=== PATIENT | male | born 1995 | race Two or more races ===

== ENCOUNTER 2023-11-23 20:16 | Inpatient (IN) | payer OTHER ==
[~2023-11-23] VITALS: Ht 188 cm; Wt 103.2 kg
[2023-11-23 20:38] LABS: Basophils # (auto) 0 10 ^3/uL (0-0.2); Basophils % (auto) 0.1 % (0.0-2.0); Eosinophils # (auto) 0.1 10 ^3/uL (0-0.8); Eosinophils % (auto) 0.3 % (0.0-7.0); Hematocrit 41.5 % (41.0-53.0); Hemoglobin 13.5 g/dL (13.5-17.5); Lymphocytes # (auto) 1.4 10 ^3/uL (0.4-5.4); Lymphocytes % (auto) 8.8 % (10.0-50.0); Mean Corpuscular Hemoglobin 28.6 pg (28.0-32.0); Mean Corpuscular Hgb Conc. 32.6 g/dL (32.0-36.0); Mean Corpuscular Volume 87.9 fL (80.0-100.0); Monocytes # (auto) 1.8 10 ^3/uL (0-1.3); Monocytes % (auto) 10.8 % (0.0-12.0); Neutrophils # (auto) 13.2 10 ^3/uL (1.6-8.6); Red Blood Cells 4.72 10^6/uL (4.5-5.90); Red Cell Distribution Width 12.9 % (11.8-14.3); White Blood Cell 16.5 10^3/uL (4.4-10.8)
[2023-11-23 20:52] LABS: INR 1.11 (0.9-1.15); Partial Thromboplastin Time 31.5 SEC (24.5-34.5); Prothrombin Time 11.7 sec (9.3-11.8)
[2023-11-23 20:54] LABS: Alanine Aminotransferase 17 U/L (7-40); Albumin 4.6 g/dL (3.2-4.8); Alkaline Phosphatase 57 U/L (46-116); Anion Gap 7 (5-15); Aspartate Aminotransferase 18 U/L (13-40); BUN/Creatinine Ratio 8.1 (10.0-20.0); Blood Urea Nitrogen 9 mg/dL (9-23); Calcium 9.7 mg/dL (8.5-10.1); Carbon Dioxide 26 mmol/L (20-30); Chloride 105 mmol/L (98-107); Glucose 120 mg/dL (74-106); Potassium 3.8 mmol/L (3.5-5.1); Sodium 138 mmol/L (136-145)
[2023-11-23 20:55] LABS: Bilirubin, Total 2.4 mg/dL (0.2-1.0); Total Protein 7.5 g/dL (5.7-8.2)
[2023-11-23] MEDS: ONDANSETRON ODT 4 MG TAB PO ONE (22:55)
[2023-11-23 23:05] LABS: Urine Bacteria None Seen /hpf (None Seen)
[2023-11-23] MEDS: SODIUM CHLORIDE 0.9% 1,000 ML IV ONE (23:08)
[2023-11-23] MEDS: MAALOX PLUS or MAALOX 30 ML PO ONE (23:09)
[2023-11-23 23:24] LABS: Urine Blood 1+ /uL (Negative); Urine Clarity Clear (Clear); Urine Color Yellow (Yellow); Urine Mucus FEW (None Seen); Urine Protein, UAD TRACE (Negative); Urine Urobilinogen Normal (Negative); Urine WBC 5 /hpf (0 - 3); Urine pH 5.5 (5.0-9.0)
[2023-11-23] MEDS: HYDROcodone-ACET 5/325MG TAB PO ONE (23:43)
[2023-11-23 23:45] VITALS: PULSE 104; RESP 19; O2SAT 96
[2023-11-23] MEDS: IOHEXOL 350 MG/ML 100ML IJ ONE (23:50)
[2023-11-24 00:11] LABS: Amphetamine Screen, Urine Neg (NEGATIVE); Barbiturate Scree,Urine Neg (NEGATIVE); Benzodiazephine Screen, Urine Neg (NEGATIVE); Cannabinoid Screen, Urine Neg (NEGATIVE); Cocaine Screen, Urine Neg (NEGATIVE); Opiate Scree,Urine Neg (NEGATIVE); Phencyclidine Screen, Urine Neg (NEGATIVE)
[2023-11-24 00:54] LABS: COVID19 ANTIGEN SOFIA FIA NEGATIVE (NEGATIVE)
[2023-11-24 00:55] LABS: Rapid Influenza A Negative (Negative); Rapid Influenza B Negative (Negative)
[2023-11-24] MEDS: MORPHINE SULFATE INJ 2 MG/ml SYRG IV ONE ×2 (02:00→02:13)
[2023-11-24] MEDS ORDERED: DOCUSATE SOD 100 MG CAP PO PRN (02:30)
[2023-11-24] MEDS ORDERED: ACETAMINOPHEN 325 MG TAB PO PRN (02:30)
[2023-11-24] MEDS ORDERED: HYDROcodone-ACET 5/325MG TAB PO PRN (02:30)
[2023-11-24] MEDS: SODIUM CHLORIDE 0.9% 1,000 ML IV SCH ×2 (03:04→13:15)
[2023-11-24] MEDS: MORPHINE SULFATE INJ 2 MG/ml SYRG IV PRN (03:11)
[2023-11-24] MEDS: ONDANSETRON HCL 4 MG/2 ML VIAL IV PRN (03:17)
[2023-11-24 04:18] LABS: Basophils # (auto) 0 10 ^3/uL (0-0.2); Basophils % (auto) 0.1 % (0.0-2.0); Eosinophils # (auto) 0 10 ^3/uL (0-0.8); Eosinophils % (auto) 0.3 % (0.0-7.0); Hematocrit 38.1 % (41.0-53.0); Hemoglobin 12.7 g/dL (13.5-17.5); Lymphocytes # (auto) 1.3 10 ^3/uL (0.4-5.4); Lymphocytes % (auto) 8.3 % (10.0-50.0); Mean Corpuscular Hemoglobin 29.6 pg (28.0-32.0); Mean Corpuscular Hgb Conc. 33.2 g/dL (32.0-36.0); Mean Corpuscular Volume 89.1 fL (80.0-100.0); Monocytes # (auto) 1.8 10 ^3/uL (0-1.3); Monocytes % (auto) 11.5 % (0.0-12.0); Neutrophils # (auto) 12.4 10 ^3/uL (1.6-8.6); Neutrophils % (auto) 79.8 % (37.0-80.0); Red Blood Cells 4.28 10^6/uL (4.5-5.90); Red Cell Distribution Width 13.1 % (11.8-14.3); White Blood Cell 15.5 10^3/uL (4.4-10.8)
[2023-11-24 04:38] LABS: Alanine Aminotransferase 20 U/L (7-40); Alkaline Phosphatase 61 U/L (46-116); Calcium 8.8 mg/dL (8.5-10.1); Carbon Dioxide 22 mmol/L (20-30); Chloride 106 mmol/L (98-107)
[2023-11-24 04:39] LABS: Anion Gap 8 (5-15); Aspartate Aminotransferase 27 U/L (13-40); BUN/Creatinine Ratio 9.9 (10.0-20.0); Bilirubin, Total 2.2 mg/dL (0.2-1.0); Blood Urea Nitrogen 9 mg/dL (9-23); Glucose 140 mg/dL (74-106); Potassium 4.4 mmol/L (3.5-5.1); Sodium 136 mmol/L (136-145); Total Protein 6.1 g/dL (5.7-8.2)
[2023-11-24] MEDS: NITROGLYCERIN 0.4 MG SL TAB SL PRN (04:48)
[2023-11-24] MEDS: KETOROLAC TROMETH 30 MG/ML 1ML VIAL IV ONE ×2 (05:25→08:12)
[2023-11-24] MEDS: SODIUM CHLORIDE 0.9% 500 ML IV ONE (08:00)
[2023-11-24] MEDS: cefTRIAXone 1GM/50ML D5W 50 ML IV SCH (09:37)
[2023-11-24 10:52] VITALS: PULSE 95; RESP 19; O2SAT 98
[2023-11-24] MEDS: ASPirin 81 mg TAB PO SCH (10:54)
[2023-11-24] MEDS: AZITHROMYCIN 500MG/ 250ML 250 ML IV SCH (10:54)
[2023-11-24 12:44] VITALS: BP 119/71; PULSE 95; RESP 19; TEMP 98.4; O2SAT 98
[2023-11-24 14:33] VITALS: BP 121/80; PULSE 85; RESP 20; TEMP 98.1; O2SAT 99
[2023-11-24 15:15] LABS: Erythrocyte Sedimentation Rate 67 mm/hr (0-20)
[2023-11-24 16:53] VITALS: BP 126/74; PULSE 74; RESP 18; TEMP 97.7; O2SAT 96
[2023-11-24] MEDS: KETOROLAC TROMETH 30 MG/ML 1ML VIAL IV PRN (16:54)
[2023-11-24 17:38] VITALS: BP 107/72; PULSE 107; RESP 19; TEMP 98.1; O2SAT 98
[2023-11-24 20:00] VITALS: BP_SYST 108; BP_SYST 109; BP_DIAS 62; PULSE 110; PULSE 98; RESP 16; RESP 17; RESP 18; TEMP 97.8; TEMP 98.2; O2SAT 94; O2SAT 97
[2023-11-24] MEDS: PANTOPRAZOLE 40 MG/10 ML VIAL INJ IV SCH (21:19)
[2023-11-25 01:00] VITALS: BP 106/71; PULSE 108; RESP 16; TEMP 98.2; O2SAT 96
[2023-11-25] MEDS: guaiFENesin-DM 100/10mg/5ml SYR PO ONE (04:21)
[2023-11-25 05:00] VITALS: BP_SYST 116; BP_SYST 95; BP_DIAS 64; BP_DIAS 75; PULSE 112; PULSE 81; RESP 16; RESP 17; TEMP 98; TEMP 98.4; O2SAT 94
[2023-11-25 06:59] LABS: Basophils # (auto) 0 10 ^3/uL (0-0.2); Basophils % (auto) 0.1 % (0.0-2.0); Eosinophils # (auto) 0.2 10 ^3/uL (0-0.8); Eosinophils % (auto) 1.4 % (0.0-7.0); Hematocrit 32.2 % (41.0-53.0); Lymphocytes # (auto) 1.5 10 ^3/uL (0.4-5.4); Lymphocytes % (auto) 12.9 % (10.0-50.0); Mean Corpuscular Hgb Conc. 34.2 g/dL (32.0-36.0); Mean Corpuscular Volume 87.8 fL (80.0-100.0); Monocytes # (auto) 1.4 10 ^3/uL (0-1.3); Monocytes % (auto) 12.2 % (0.0-12.0); Neutrophils # (auto) 8.4 10 ^3/uL (1.6-8.6); Neutrophils % (auto) 73.4 % (37.0-80.0); Red Blood Cells 3.67 10^6/uL (4.5-5.90); Red Cell Distribution Width 13.2 % (11.8-14.3); White Blood Cell 11.4 10^3/uL (4.4-10.8)
[2023-11-25 07:17] LABS: Alanine Aminotransferase 29 U/L (7-40); Albumin 3.5 g/dL (3.2-4.8); Alkaline Phosphatase 65 U/L (46-116); Anion Gap 8 (5-15); Aspartate Aminotransferase 26 U/L (13-40); BUN/Creatinine Ratio 8.2 (10.0-20.0); Blood Urea Nitrogen 8 mg/dL (9-23); Calcium 8.8 mg/dL (8.5-10.1); Carbon Dioxide 23 mmol/L (20-30); Chloride 103 mmol/L (98-107); Glucose 114 mg/dL (74-106); Sodium 134 mmol/L (136-145)
[2023-11-25 07:18] LABS: Bilirubin, Total 1.6 mg/dL (0.2-1.0)
[2023-11-25 08:00] VITALS: PULSE 108; RESP 18; O2SAT 98
[2023-11-25 09:00] VITALS: BP 108/63; PULSE 105; RESP 20; TEMP 98.4; O2SAT 94
[2023-11-25 09:45] LABS: CRP High Sensitivity 15.39 mg/dL (<1.0)
[2023-11-25] MEDS: IBUPROFEN 400 MG TAB PO ONE (12:08)
[2023-11-25] MEDS: COLCHICINE 0.6 MG CAP PO SCH (12:09)
[2023-11-25] MEDS: PANTOPRAZOLE 40 MG TAB PO SCH (12:09)
[2023-11-25 12:52] LABS: Magnesium 2.1 mg/dL (1.6-2.6)
[2023-11-25 13:00] VITALS: BP 117/84; PULSE 101; RESP 20; TEMP 98.7; O2SAT 97
[2023-11-25 13:29] LABS: Magnesium 2.1 mg/dL (1.6-2.6)
[2023-11-25] MEDS: IBUPROFEN 600 MG TAB PO SCH (14:34)
== END 2023-11-25 14:25 | disposition left against medical advice (07) | DRG 871 ==
LOC: ER 20:16 → TELE 11-24 02:35 → TELE-EAST 11-24 10:01
PROVIDERS: ADMIT Nurse Practitioner Family; ATTEND Family Medicine
DX: A41.9 Sepsis, unspecified organism (principal); J18.9 Pneumonia, unspecified organism; I30.9 Acute pericarditis, unspecified; E66.9 Obesity, unspecified; Z53.29 Procedure and treatment not carried out because of patient's decision for other reasons; E80.4 Gilbert syndrome; J32.9 Chronic sinusitis, unspecified; K82.8 Other specified diseases of gallbladder; E80.6 Other disorders of bilirubin metabolism; Z88.1 Allergy status to other antibiotic agents; Z68.29 Body mass index [BMI] 29.0-29.9, adult; Z79.899 Other long term (current) drug therapy
CPT/HCPCS: 36415; 71045; 74176; 76705; 80053; 80061; 80307; 81001; 83036; 83516; 83690; 83735; 83880; 84443; 84484; 85025; 85379; 85610; 85652; 85730; 86141; 86225; 86235; 87040; 87426; 87804; 93005; 93306; 96361; 96374; C9113; G0378; J1885; J2405; Q0162